=== PATIENT | male | born 1930 | race Caucasian/White ===

== ENCOUNTER 2016-12-10 10:55 | Emergency (ER) | payer OTHER, MEDICARE ==
[~2016-12-10] VITALS: Ht 182.9 cm; Wt 100.9 kg
[2016-12-10 11:29] LABS: POINT-OF-CARE METER ID UU14100415
[2016-12-10] MEDS ORDERED: COUMADIN2 MG PO (12:18)
[2016-12-10 12:43] VITALS: BP 133/86
== END 2016-12-10 12:43 | disposition home or self-care (01) ==
LOC: EME 10:55
PROC: 3E0234Z Introduction of Serum, Toxoid and Vaccine into Muscle, Percutaneous Approach (ICD-10-PCS; principal; 2016-12-10)
DX: S00.83XA Contusion of other part of head, initial encounter (principal); W10.1XXA Fall (on)(from) sidewalk curb, initial encounter; Z79.01 Long term (current) use of anticoagulants; Z23 Encounter for immunization; I48.91 Unspecified atrial fibrillation; Z95.0 Presence of cardiac pacemaker; Z87.891 Personal history of nicotine dependence
CPT/HCPCS: 70450; 99281; 99284